=== PATIENT | male | born 1995 ===

== ENCOUNTER 2016-04-04 14:50 | Emergency (ER) | payer SELFPAY ==
[2016-04-04 14:56] VITALS: BP 153/92
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
== END 2016-04-04 15:59 | disposition home or self-care (01) ==
LOC: ED 14:50
DX: S12.9XXA Fracture of neck, unspecified, initial encounter (principal); S00.81XA Abrasion of other part of head, initial encounter; V49.9XXA Car occupant (driver) (passenger) injured in unspecified traffic accident, initial encounter; Y92.9 Unspecified place or not applicable; Y99.9 Unspecified external cause status
CPT/HCPCS: 99281